=== PATIENT | male | born 1985 | race Caucasian/White ===

== ENCOUNTER → 2022-03-10 08:55 | Outpatient (CLI) | payer OTHER, SELFPAY ==
--- NOTE | ~2022-03-10 | CT_ITS ---
EXAMINATION: CT sinus wo con DATE: 03/10/2022 09:06 INDICATION: Chronic sinusitis TECHNIQUE: Computed tomography (CT) of the paranasal sinuses was performed without intravenous contra st. The dose-length product (DLP) was 295.05 mGy-cm. Iterative reconstruction was used. COMPARISON: None FINDINGS: There is normal development and pneumatization of the paranasal sinuses. There is an 8 mm p olyp or mucous retention cyst of the right maxillary sinus. Polyps or mucous retention cysts are note d inferiorly in the maxillary sinuses. The frontal and sphenoid sinuses are clear. There is mild muco dee dee thickening of the ethmoidal air cells. The bilateral ostiomeatal complexes are patent. Visualized soft tissues are unremarkable. There are 4 mm of rightward deviation of the nasal septum. IMPRESSION: 1. Sinus disease as described above. Reviewed, dictated and finalized at location B. [employer]
== END ==
PROVIDERS: PCP Internal Medicine; Visit Provider Nurse Practitioner Family
DX: J32.9 Chronic sinusitis, unspecified (principal); J34.1 Cyst and mucocele of nose and nasal sinus; J34.2 Deviated nasal septum
CPT/HCPCS: 70486

== ENCOUNTER → 2022-07-07 14:43 | Outpatient (CLI) | payer OTHER, SELFPAY ==
--- NOTE | ~2022-07-07 | CT_ITS ---
EXAMINATION: CT abdomen pelvis w con DATE: 07/07/2022 15:38 INDICATION: Left upper quadrant abdominal pain TECHNIQUE: Computed tomography (CT) of the abdomen and pelvis was performed with 100 CC Omnipaque 350 intravenous contrast. Automated exposure control and iterative reconstruction technique were employe d. Exam dose: 792.01 mGy-cm total exam DLP. COMPARISON: 01/2018 CT abdomen pelvis FINDINGS: There is minimal discoid atelectasis or scarring at the lower lobes. No pulmonary consolida tion is noted at the lung bases. Normal heart size. No pericardial or pleural effusion. The liver, gallbladder, bile ducts, spleen, pancreas and pancreatic duct, and adrenal glands and kidn eys are normal. Splenic size is within upper normal range at 12 cm vertical dimension. No urinary tra ct calculus or hydroureteronephrosis. The urinary bladder an prostate gland are unremarkable. Normal caliber of the abdominal aorta. No intraperitoneal or retroperitoneal or pelvic mass lesion or adenopathy or ascites. Normal appendix. No bowel obstruction, bowel wall thickening, pneumatosis or intraperitoneal free air . Small fat-containing umbilical hernia. Bilateral L5 pars interarticularis defects with slight if any spondylolisthesis at L5-S1. IMPRESSION: Bilateral L5 pars interarticularis defects Normal appendix Spleen within upper limits normal size Reviewed, dictated and finalized at [facility]. Reviewed, dictated and finalized at location L. [employer]ACTING ANALYST
== END ==
PROVIDERS: PCP Internal Medicine; Visit Provider Internal Medicine
DX: R10.12 Left upper quadrant pain (principal)
CPT/HCPCS: 74177; Q9967

== ENCOUNTER 2022-08-03 16:54 | Emergency (ER) | payer OTHER, SELFPAY ==
[2022-08-03 17:03] VITALS: BP 124/84; PULSE 77; RESP 16; TEMP 36.6; O2SAT 100
--- NOTE | 2022-08-03 17:14 | ED.UPPEXIN ---
HPI - Extremity Injury (Upper) General Chief Complaint: Extremity Injury, Upper Stated Complaint: rt shoulder/neck pain Source: patient, family and RN notes reviewed History of Present Illness HPI narrative: [age] old male presents to urgent care with complaints right posterior/ lateral neck pain that radiates to his right trapezius muscle. Patient states the pain has been going on for couple weeks and started when he woke up 1 morning. Patient denies any injury or trauma. Denies any fevers, chills, numbness, tingling, or arm pain. Exiting chest pain or shortness of breath. Patient has been taking muscle relaxers right old injury as well as Tylenol with minimal relief. Some parts of this dictation were generated by voice recognition software and may contain typographical and/or grammatical inaccuracies. Related Data Home Medications Medication Instructions Recorded Confirmed fexofenadine 30 mg tablet 30 mg PO DAILY 08/03/22 08/03/22 montelukast 10 mg tablet 10 mg PO DAILY 08/03/22 08/03/22 omeprazole 40 mg capsule,delayed 40 mg PO DAILY 08/03/22 08/03/22 release Allergies Allergy/AdvReac Type Severity Reaction Status Date / Time No Known Allergies Allergy Unknown Verified 08/03/22 17:00 Review of Systems Review of Systems: Pertinent positives and pertinent negatives per HPI. [facility] Family History Family History (Updated 11/29/15 @ 23:19 by DOCTOR UNKNOWN) Mother Family history of thyroid disease Father Family history of elevated blood lipids Other Family history of attention deficit hyperactivity disorder (ADHD) Family history of malignant neoplasm of breast Social History Social History Smoking status: Never smoker Alcohol intake: current Comments At the time of my signature, I reviewed and agree with the nursing past medical, surgical, social, and family history. There is no relevant family history pertinent to the patient complaint. Exam Narrative: GENERAL: This is a well-nourished, well-developed patient, in no apparent distress. HEAD: normocephalic, atraumatic. EYES: Sclera clear/white. Vision is grossly intact. EARS: External ears normal, auditory canals clear and without drainage. Hearing grossly intact. NOSE: External nose normal with no obvious nasal discharge, nares without redness, no rhinorrhea. THROAT: Mucous membranes moist, posterior pharynx clear. NECK: Neck supple, non-tender without lymphadenopathy, masses or thyromegaly. CARDIOVASCULAR: Regular rate and rhythm without murmurs, gallops, or rubs. RESPIRATORY: Clear to auscultation. Breath sounds equal bilaterally. No wheezes, rales, or rhonchi. GASTROINTESTINAL: Abdomen soft, non-tender, nondistended. Bowel sounds are active. No hepato-splenomegaly, or palpable masses. No guarding. SKIN: warm, intact with no suspicious lesions or rash, good texture and turgor. NEURO: awake, alert, and oriented to person, place and time. There were no obvious focal neurologic abnormalities. EXTREMITIES: No clubbing, cyanosis, or edema. No joint tenderness, effusion, or edema noted. Right trapezius tenderness. BACK: Nontender without deformity or crepitance. No flank tenderness. Course Course Level of Care: Express Care Visit Vital Signs Vital signs: Vital Signs Temperature 98 F 08/03/22 17:03 Pulse Rate 77 08/03/22 17:03 Respiratory Rate 16 08/03/22 17:03 Blood Pressure 124/84 08/03/22 17:03 Pulse Oximetry 100 08/03/22 17:03 Temperature 98 F 08/03/22 17:03 Pulse Rate 77 08/03/22 17:03 Respiratory Rate 16 08/03/22 17:03 Blood Pressure 124/84 08/03/22 17:03 Pulse Oximetry 100 08/03/22 17:03 reviewed. MDM - Extremity Injury (Upper) MDM Narrative Medical decision making narrative: Take the muscle relaxers, Tylenol, and steroids as directed. You may apply heat for 15 min, follow by light stretching and massage to right trapezius muscle for 15 min, up to 3x/day. Patient unabl
== END 2022-08-03 17:20 | disposition home or self-care (01) ==
PROVIDERS: Emergency Provider Nurse Practitioner Family; PCP Internal Medicine
DX: S46.811A Strain of other muscles, fascia and tendons at shoulder and upper arm level, right arm, initial encounter (principal); X58.XXXA Exposure to other specified factors, initial encounter
CPT/HCPCS: 99213; G0463